=== PATIENT | male | born 1930 | race Caucasian/White ===

== ENCOUNTER 2017-02-02 10:43 | Outpatient (CLI) | payer MEDICARE, MEDICAID ==
[~2017-02-02 10:43] MED LIST: CLOP75TA2 PO; DUTA0.5C PO; OLME40TA3 PO; ROSU10TA PO; TAMS-12 PO; VENL150C2 PO; VENL75TA54 PO
== END 2017-02-02 23:59 | disposition home or self-care (01) ==
LOC: CARD 10:43
DX: L02.416 Cutaneous abscess of left lower limb (principal); M79.89 Other specified soft tissue disorders
CPT/HCPCS: 76882

== ENCOUNTER 2017-10-18 08:18 | Emergency (ER) | payer MEDICARE, OTHER ==
[~2017-10-18] VITALS: Ht 162.6 cm; Wt 79.4 kg
[~2017-10-18 08:18] MED LIST changes: +CLOP75TA15 PO; -CLOP75TA2 PO; +OLME40TA12 PO; -OLME40TA3 PO
--- NOTE | 2017-10-18 08:26 | NUR ---
C/O BLURRY/CLOUDY VISION X 3 DAYS
[2017-10-18] MEDS ORDERED: TETRACAINE HCL/PF 0.5% UD 2 ML BOTTLE EACHEYE ONE (08:30)
[2017-10-18] MEDS ORDERED: TONO PEN in ED SUPPLY ONICELL 1 EA MC ONE (08:30)
[2017-10-18] MEDS ORDERED: FLUORESCEIN SODIUM OPHTH 1 EA STRIP OP ONE (08:30)
[2017-10-18] MEDS ORDERED: FLUORESCEIN SODIUM OPHTH 1 EA STRIP ONE (08:31)
[2017-10-18] MEDS ORDERED: TETRACAINE HCL/PF 0.5% UD 2 ML BOTTLE ONE (08:31)
--- NOTE | 2017-10-18 08:38 | NUR ---
DR MONTILLA AT BEDSIDE FOR EVAL
[2017-10-18 08:53] VITALS: BP 150/78
== END 2017-10-18 08:55 | disposition home or self-care (01) ==
LOC: ER 08:20
DX: H10.89 Other conjunctivitis (principal); I10 Essential (primary) hypertension; Z88.8 Allergy status to other drugs, medicaments and biological substances
CPT/HCPCS: A4606; Z7610

== ENCOUNTER 2021-05-01 19:41 | Inpatient (IN) | payer MEDICARE, OTHER ==
[~2021-05-01] VITALS: Ht 170.2 cm; Wt 90.7 kg
[~2021-05-01 19:41] MED LIST changes: -ROSU10TA PO; +ROSU10TA2 PO
--- NOTE | 2021-05-01 19:45 | NUR ---
YAN FROM [facility] FOR FURHTER EVAL ON ABD PAIN, N/V SINCE THIS MORNING. KUB RESULT: PARTIAL SBO VS ILEUS, PT AAOX2-3, NOT IN ACUTE DISTRESS, PT TO BED 6, PLACED ON MONITOR, VSS ,PENDING ER PROVIDER EVAL
--- NOTE | 2021-05-01 19:58 | NUR ---
LAUREN RUBY AT [facility] PT HAS REC'D TWO DOSES OF MODERNA VACCINE.
[2021-05-01 20:14] LABS: BASOPHILS % (AUTO) 0.2 % (0.0-2.0); HEMATOCRIT 44 % (39-51); HEMOGLOBIN 14.8 g/dL (13.5-17.5); LYMPHOCYTES # (AUTO) 1.8 K/uL (0.8-4.8); LYMPHOCYTES % (AUTO) 13.9 % (20.0-44.0); MEAN CORPUSCULAR HGB CONC 33 g/dl (31.0-36.0); MEAN CORPUSCULAR VOLUME 93 fL (80-96); MONOCYTES # (AUTO) 1.1 K/uL (0.1-1.30); MONOCYTES % (AUTO) 8.5 % (2.0-12.0); NEUTROPHILS % (AUTO) 77.4 % (43.0-81.0); PLATELET COUNT (AUTO) 161 K/uL (150-450); RED BLOOD CELL COUNT(AUTO) 4.76 MIL/uL (4.5-6.0)
[2021-05-01] MEDS ORDERED: IV NS 0.9% 1,000 ML BAG IV ONE (20:30)
[2021-05-01 20:43] LABS: ALBUMIN 3.3 g/dL (3.4-5.0); BILIRUBIN,DIRECT 0.4 mg/dL (0.0-0.2); BILIRUBIN,TOTAL 1.9 mg/dL (0.2-1.0); CALCIUM, SERUM 8.6 mg/dL (8.5-10.1); CREATININE 1.1 mg/dL (0.6-1.3); POTASSIUM 3.6 mmol/L (3.5-5.1); TOTAL PROTEIN, SERUM 7.5 g/dL (6.4-8.2)
--- NOTE | 2021-05-01 22:12 | NUR ---
NARESH COLLECTED AND SENT TO THE LAB.
[2021-05-01] MEDS ORDERED: SIME125C81 PO (22:18)
[2021-05-01] MEDS ORDERED: CITA20TA19 PO (22:18)
[2021-05-01] MEDS ORDERED: CARV12.52 PO (22:18)
[2021-05-01] MEDS ORDERED: PANT40TA2 PO (22:18)
[2021-05-01] MEDS ORDERED: DOCU100C36 PO (22:18)
--- NOTE | 2021-05-01 23:53 | NUR ---
attempted to insert NGT. unable
[2021-05-02] VITALS (7 sets, daily range): BP systolic 143–172; BP diastolic 51–85
[2021-05-02] MEDS ORDERED: MAG HYDROX/AL HYDROX/SIMETH 30 ML UDC PO PRN
[2021-05-02] MEDS ORDERED: ONDANSETRON HCL/PF 4 MG/2 ML VIAL IVP PRN
[2021-05-02] MEDS ORDERED: ZOLPIDEM TARTRATE 5 MG TABLET PO PRN
[2021-05-02] MEDS ORDERED: Z GUARD REMEDY 2 OZ OINT TP PRN
[2021-05-02] MEDS ORDERED: ACETAMINOPHEN 325 MG TABLET PO PRN
--- NOTE | 2021-05-02 01:02 | NUR ---
m/s 114-1
--- NOTE | 2021-05-02 01:59 | NUR ---
HELD JUAQUIN SGail CONSULT IN AM
[2021-05-02] MEDS: ENOXAPARIN SODIUM 40 MG/0.4 ML DISP.SYRIN SQ SCH ×2 (02:00→08:30)
--- NOTE | 2021-05-02 02:00 | NUR ---
REPORT GIVEN TO ROXIE SOTO FOR SHAJI
--- NOTE | 2021-05-02 02:15 | NUR ---
MS RN NOTES ADMITTED A 89 Y/O AWAKE A/OX2-3 RESTING COMFORTABLY IN BED . NPO STATUS . NO S/SX OF ACUTE DISTRESS NO SOB NOTED. PATIENT'S BREATHING IS EVEN AND UNLABORED. WITH ADMITTING DX OF SBO .IVF NS AT 75CC/HR TOLERATES WELL. NOTED IV SITE ON L AC #20 ; PATENT, INTACT AND FLUSHING WELL; NO S/S OF INFECTION OR INFILTRATION. SAFETY MEASURES HAVE BEEN PROVIDED AND IMPLEMENTED. PATIENT BED ALARM IS ON. HEAD OF BED ELEVATED. BED IS LOCKED, IN LOWEST POSITION AND SIDE RAILS UP. CALL LIGHT WITHIN REACH OF THE PATIENT. NGT INSERTED ON RIGHT NARES CONNECTED TO INTERMITTENT SUCTION , WILL CONTINUE TO MONITOR FOR ANY CHANGES .KUB ORDER STAT FOR NGT PLACEMENT AWAITING FOR RESULT .V/S STABLE AFEBRILE.
--- NOTE | 2021-05-02 02:20 | NUR ---
PT TRANSPORTED TO 1ST FLOOR
[2021-05-02] MEDS: IV NS 0.9% 1,000 ML IV PRN ×2 (02:58→20:07)
[2021-05-02 06:58] LABS: BASOPHILS % (AUTO) 0.1 % (0.0-2.0); HEMATOCRIT 42 % (39-51); HEMOGLOBIN 13.9 g/dL (13.5-17.5); LYMPHOCYTES # (AUTO) 1.4 K/uL (0.8-4.8); LYMPHOCYTES % (AUTO) 15.5 % (20.0-44.0); MEAN CORPUSCULAR HGB CONC 34 g/dl (31.0-36.0); MEAN CORPUSCULAR VOLUME 94 fL (80-96); MONOCYTES # (AUTO) 0.9 K/uL (0.1-1.30); MONOCYTES % (AUTO) 9.9 % (2.0-12.0); NEUTROPHILS % (AUTO) 74.5 % (43.0-81.0); PLATELET COUNT (AUTO) 140 K/uL (150-450); RED BLOOD CELL COUNT(AUTO) 4.41 MIL/uL (4.5-6.0); WHITE BLOOD COUNT (AUTO) 9.3 K/uL (4.3-11.0)
[2021-05-02 07:09] LABS: CALCIUM, SERUM 8.4 mg/dL (8.5-10.1); MAGNESIUM 2.4 mg/dL (1.8-2.4); PHOSPHORUS 2.7 mg/dL (2.5-4.9); POTASSIUM 3.6 mmol/L (3.5-5.1)
--- NOTE | 2021-05-02 07:26 | NUR ---
SHOW WORKER NOTES ENDORSE TO RN DAYSHIFT FOR CONTINUITY OF CARE.
[2021-05-02] MEDS: hydrALAZINE HCL IV 20 MG VIAL IV PRN (07:50)
--- NOTE | 2021-05-02 08:04 | NUR ---
MS/RN OPENING NOTES RECEIVED PATIENT IN BED. A/OX2-3 RESTING COMFORTABLY IN BED. HARD OF HEARING. STILL ON NPO STATUS . NO S/SX OF ACUTE DISTRESS NO SOB NOTED. PATIENT'S BREATHING IS EVEN AND UNLABORED. WITH ADMITTING DX OF SBO .IVF NS AT 75CC/HR TOLERATES WELL. NOTED IV SITE ON L AC #20 ; PATENT, INTACT AND FLUSHING WELL; SAFETY PRECAUTIONSIN PLACED. PATIENT BED ALARM IS ON. HEAD OF BED ELEVATED. BED IS LOCKED, IN LOWEST POSITION AND SIDE RAILS UP. CALL LIGHT WITHIN REACH OF THE PATIENT. NGT ON RIGHT NARES CONNECTED TO INTERMITTENT SUCTION , WILL CONTINUE TO MONITOR FOR ANY CHANGES
[2021-05-02] MEDS: PANTOPRAZOLE 40 MG TABLET.DR PO SCH (09:00)
[2021-05-02] MEDS: DOCUSATE SODIUM 100 MG CAPSULE PO SCH (09:00)
[2021-05-02] MEDS: DUTASTERIDE (0.5 MG) 0.5 MG CAPSULE PO SCH (09:00)
[2021-05-02] MEDS: CARVEDILOL 12.5 MG TABLET PO SCH ×2 (09:00→17:00)
[2021-05-02] MEDS: CLOPIDOGREL BISULFATE 75 MG TABLET PO SCH (09:00)
[2021-05-02] MEDS: CITALOPRAM HYDROBROMIDE 20 MG TABLET PO SCH (09:00)
[2021-05-02] MEDS ORDERED: DIATR MEGLU/DIATRIZOATE SODIUM 120 ML BOTTLE (GASTROGRAPHIN) ONE (09:25)
--- NOTE | 2021-05-02 09:30 | NUR ---
MS/RN NOTES RADIOLOGY STAFF PICKED UP PATIENT TO DO XRAY SMALL BOWEL FOLLOW THROUGH. PATIENT IS STABLE ON ROOM AIR. INTERMITTENT SUCTION TURNED OFF AT 9AM. NO DISTRESS NOTED AT THIS TIME. CONSENTS SIGNED BY PATIENT.
[2021-05-02] MEDS ORDERED: LORAZEPAM INJ 2 MG/ML VIAL IV PRN (11:30)
--- NOTE | 2021-05-02 17:03 | NUR ---
MS/AMMONIA PRINT OPERATOR NOTES CALLED IN ENDORSEMENT TO SAMIR COOPER RN. PATIENT IS ALERT AND ORIENTED X3, ABLE TO MAKE NEEDS KNOWN. STABLE ON ROOM AIR. TRANSFERRED TO BED 327-2 VIA [facility].
--- NOTE | 2021-05-02 17:14 | NUR ---
MS STEEL RIGGER NOTES RECEIVED TRANSFER FROM ALETHEA. PATIENT MEDICALLY STABLE, A/O X2. NG TUBE TO R NARIS. SAFETY PRECAUTIONS IN PLACE; BED IN LOW POSITION AND LOCKED, RAILS UP X2, CALL LIGHT WITHIN REACH. WILL CONTINUE TO MONITOR PATIENT.
--- NOTE | 2021-05-02 18:48 | NUR ---
MS RN NOTES PATIENT REMAINS IN BED, AWAKE, A/O X2, CONFUSED. HE IS NPO FOR NOW DUE TO SBO AND POSSIBLE PROCEDURE. NG-TUBE TO THE R NARIS, NOT ON SUCTION DUE TO SBO X-RAY SERIES. SAFETY PRECAUTIONS IN PLACE; BED IN LOW POSITION AND LOCKED, RAILS UP X2, CALL LIGHT WITHIN REACH. WILL ENDORSE TO CABLE FERRY OPERATOR NURSE FOR SHAJI.
--- NOTE | 2021-05-02 19:25 | NUR ---
MS/RN OPENING NOTE RECEIVED PATIENT RESTING IN BED. AWAKE, ALERT AND ORIENTED X 2. ABLE TO MAKE NEEDS KNOWN. DENIES PAIN AT THIS TIME. CONTINUES ON ROOM AIR WITH NO S/SX OF RESPIRATORY DISTRESS NOTED. IV ACCESS TO LEFT AC #20G INTACT AND PATENT. CONTINUES ON IVF NS 0.9% @ 75ML/HR. CONTINUES ON NPO STATUS. NG TUBE TO RIGHT NARE INTACT AND SECURE. CONTINUING TO HOLD SUCTION FOR SMALL BOWEL FOLLOW THROUGH. CALL LIGHT WITHIN REACH. ASPIRATION, FALL AND SAFETY PRECAUTIONS MAINTAINED. WILL CONTINUE TO MONITOR.
--- NOTE | 2021-05-02 20:45 | NUR ---
MS/RN NOTE PATIENT WITH INCREASED AGITATION, C/O POSITIONING OF NG TUBE. REPOSITIONED AND SECURED. ADMINISTERED PRN ATIVAN.
[2021-05-02] MEDS: LORAZEPAM INJ 2 MG/ML VIAL IV PRN (20:46)
[2021-05-02] MEDS: TAMSULOSIN 0.4 MG CAP.SR.24H PO SCH (22:00)
[2021-05-02] MEDS: VENLAFAXINE XR 75 MG CAP.SR.24H PO SCH (22:00)
--- NOTE | 2021-05-02 22:45 | NUR ---
MS/RN NOTE RECEIVED CALL FROM RADIOLOGY WITH SMALL BOWEL FOLLOW THROUGH RESULT. IMPRESSION "CONSISTENT WITH HIGH GRADE SMALL BOWEL OBSTRUCTION". NOTIFIED TISSUE TECHNOLOGIST LALO DEE WITH ORDERS TO RESTART NGT SUCTION ON LOW INTERMITTENT SUCTION. SUCTION APPLIED. PATIENT TOLERATING WELL. Addendum: 05/02/21 at 2352 by DANITA SIMMS RN SMALL BOWEL FOLLOW THROUGH XRAY SHOWS POSITIVE PLACEMENT OF NG TUBE. PRIOR TO PLACING ON SUCTION AUSCULTATED ABDOMEN WITH POSITIVE PLACEMENT NOTED.
[2021-05-03 00:23] VITALS: BP 143/85
[2021-05-03] MEDS: LORAZEPAM INJ 2 MG/ML VIAL IV PRN (02:37)
[2021-05-03] MEDS: IV NS 0.9% 1,000 ML IV PRN (05:56)
--- NOTE | 2021-05-03 06:35 | NUR ---
MS/RN CLOSING NOTE PATIENT CURRENTLY SLEEPING IN BED. AWAKE, ALERT AND ORIENTED X 2. ABLE TO MAKE NEEDS KNOWN. DENIES PAIN AT THIS TIME. CONTINUES ON ROOM AIR WITH NO S/SX OF RESPIRATORY DISTRESS NOTED. IV ACCESS TO LEFT AC #20G INTACT AND PATENT. CONTINUES ON IVF NS 0.9% @ 75ML/HR. CONTINUES ON NPO STATUS. NG TUBE TO RIGHT NARE INTACT AND SECURE. CONTINUES ON LOW INTERMITTENT SUCTION WITH TOTAL OUTPUT OF 1300CC THIS SHIFT. CALL LIGHT WITHIN REACH. ASPIRATION, FALL AND SAFETY PRECAUTIONS MAINTAINED. WILL ENDORSE PLAN OF CARE TO ONCOMING SHIFT.
--- NOTE | 2021-05-03 07:25 | NUR ---
RN OPENING NOTE RECEIVED PATIENT IN BED. A/O X 2-3. ON ROOM AIR, NO SOB NOTED. NO S/S OF RESPIRATORY DISTRESS. DENIES ANY PAIN OR DISCOMFORT AT THIS TIME. IV ACCESS ON R FA #20 G, NS RUNNING AT 75 ML/HR, INTACT AND PATENT. NGT TUBE ON R NARE CONNECTED TO LOW INTERMITTENT SUCTION. CURRENTLY ON NPO STATUS. SAFETY MEASURES MAINTAINED. BED IN LOWEST POSITION, BRAKES LOCKED. SIDE RAILS UP X2. CALL LIGHT WITHIN REACH. WILL CONTINUE PLAN OF CARE.
[2021-05-03 07:33] LABS: BASOPHILS % (AUTO) 0.1 % (0.0-2.0); HEMATOCRIT 44 % (39-51); HEMOGLOBIN 14.7 g/dL (13.5-17.5); LYMPHOCYTES # (AUTO) 1.5 K/uL (0.8-4.8); LYMPHOCYTES % (AUTO) 15.5 % (20.0-44.0); MEAN CORPUSCULAR HGB CONC 33 g/dl (31.0-36.0); MEAN CORPUSCULAR VOLUME 96 fL (80-96); MONOCYTES # (AUTO) 1.4 K/uL (0.1-1.30); MONOCYTES % (AUTO) 14.4 % (2.0-12.0); NEUTROPHILS # (AUTO) 6.6 K/uL (1.8-8.9); PLATELET COUNT (AUTO) 151 K/uL (150-450); RED BLOOD CELL COUNT(AUTO) 4.62 MIL/uL (4.5-6.0); WHITE BLOOD COUNT (AUTO) 9.5 K/uL (4.3-11.0)
[2021-05-03 07:40] LABS: BILIRUBIN,TOTAL 1.9 mg/dL (0.2-1.0); CALCIUM, SERUM 8.3 mg/dL (8.5-10.1); CREATININE 1.2 mg/dL (0.6-1.3); MAGNESIUM 2.6 mg/dL (1.8-2.4); PHOSPHORUS 2.8 mg/dL (2.5-4.9); POTASSIUM 3.6 mmol/L (3.5-5.1); TOTAL PROTEIN, SERUM 7.1 g/dL (6.4-8.2)
[2021-05-03 08:00] VITALS: BP 169/72
[2021-05-03] MEDS: DOCUSATE SODIUM 100 MG CAPSULE PO SCH (08:12)
[2021-05-03] MEDS: CLOPIDOGREL BISULFATE 75 MG TABLET PO SCH (08:12)
[2021-05-03] MEDS: CARVEDILOL 12.5 MG TABLET PO SCH ×2 (08:12→16:08)
[2021-05-03] MEDS: CITALOPRAM HYDROBROMIDE 20 MG TABLET PO SCH (08:12)
[2021-05-03] MEDS: PANTOPRAZOLE 40 MG TABLET.DR PO SCH (08:12)
[2021-05-03] MEDS: DUTASTERIDE (0.5 MG) 0.5 MG CAPSULE PO SCH (08:12)
[2021-05-03] MEDS: ENOXAPARIN SODIUM 40 MG/0.4 ML DISP.SYRIN SQ SCH (08:27)
--- NOTE | 2021-05-03 09:30 | NUR ---
RN NOTE Clamp ngt tube as per Heather Teresa NP.
[2021-05-03] MEDS: IV D5/0.45 NACL 1,000 ML IV PRN (11:05)
[2021-05-03 16:00] VITALS: BP 179/87
--- NOTE | 2021-05-03 18:16 | NUR ---
RN CLOSING NOTE PATIENT RESTING IN BED. A/O X 2-3. ON ROOM AIR, NO SOB NOTED. NO S/S OF RESPIRATORY DISTRESS. NO REPORTS OF PAIN OR DISCOMFORT AT THIS TIME. IV ACCESS ON R FA #20 G, NS RUNNING AT 75 ML/HR, INTACT AND PATENT. NGT TUBE ON R NARE CLAMPED. CURRENTLY ON NPO STATUS. ALL NEEDS HAVE BEEN MET AND ATTENDED. SAFETY MEASURES MAINTAINED. BED IN LOWEST POSITION, BRAKES LOCKED. SIDE RAILS UP X2. KEPT CALL LIGHT WITHIN REACH. WILL ENDORSE CONTINUITY OF CARE TO ONCOMING SHIFT.
[2021-05-03 20:00] VITALS: BP 172/75
[2021-05-03 21:14] VITALS: BP 167/69
[2021-05-03] MEDS: hydrALAZINE HCL IV 20 MG VIAL IV PRN (21:20)
[2021-05-03] MEDS: VENLAFAXINE XR 75 MG CAP.SR.24H PO SCH (22:00)
[2021-05-03] MEDS: TAMSULOSIN 0.4 MG CAP.SR.24H PO SCH (22:00)
[2021-05-03 22:15] VITALS: BP 145/65
--- NOTE | 2021-05-03 22:29 | NUR ---
RN NOTES RECEIVED PATIENT IN BED, ALERT/ORIENTED X3, ROOM AIR, NO COMPLAIN OF ABDOMINAL PAIN, NG TUBE CLAMPED, REINFORCED TAPE TO BRIDGE OF NOSE,, ASSISTED TO TOILET USING FWW, KEPT SAFE, WILL CONTINUE TO MONITOR.
[2021-05-04] VITALS: BP 136/71
[2021-05-04 00:23] VITALS: BP 136/71
[2021-05-04] MEDS: IV D5/0.45 NACL 1,000 ML IV PRN ×2 (00:43→17:28)
[2021-05-04] MEDS: LORAZEPAM INJ 2 MG/ML VIAL IV PRN ×2 (01:20→21:00)
--- NOTE | 2021-05-04 04:13 | NUR ---
RN NOTES PATIENT CALLING OUT, RESTLESS, ABDOMINAL DISTENTION, PUT BACK ON SUCTION AT 100 mmHg, GASTRIC FLUIDS SUCTIONED OUT, BROWNISH LIQUID, OUTPUT DRAINED 1300 ML. KEPT HOB ELEVATED, WILL CONTINUE TO MONITOR.
[2021-05-04 06:48] LABS: HEMATOCRIT 45 % (39-51); HEMOGLOBIN 14.9 g/dL (13.5-17.5); LYMPHOCYTES # (AUTO) 1.4 K/uL (0.8-4.8); LYMPHOCYTES % (AUTO) 17.3 % (20.0-44.0); MEAN CORPUSCULAR HGB CONC 33 g/dl (31.0-36.0); MEAN CORPUSCULAR VOLUME 95 fL (80-96); MONOCYTES # (AUTO) 1.4 K/uL (0.1-1.30); MONOCYTES % (AUTO) 16.5 % (2.0-12.0); NEUTROPHILS # (AUTO) 5.4 K/uL (1.8-8.9); NEUTROPHILS % (AUTO) 66.2 % (43.0-81.0); PLATELET COUNT (AUTO) 176 K/uL (150-450); RED BLOOD CELL COUNT(AUTO) 4.69 MIL/uL (4.5-6.0); WHITE BLOOD COUNT (AUTO) 8.2 K/uL (4.3-11.0)
--- NOTE | 2021-05-04 06:50 | NUR ---
ALERT/ORIENTED X3, ROOM AIR, ABDOMINAL FULLNESS, ABDOMINAL DISTENTION, SMALL BOWEL OBSTRUCTION, PUT BACK ON MEDIUM SUCTION, IF ON LOW SUCTION, GASTRIC FLUIDS NOT BEING SUCTIONED, BLANCHABLE REDNESS TO BUTTOCKS, PHOTO TAKEN, ZGUARD APPLIED, TURNING AND REPOSITIONING, KUB TODAY, NPO, IVF, SUPPORTIVE CARE
--- NOTE | 2021-05-04 07:25 | NUR ---
RN OPENING NOTE RECEIVED PATIENT IN BED. A/O X 2-3. ON ROOM AIR, NO SOB NOTED. NO S/S OF RESPIRATORY DISTRESS. DENIES ANY PAIN OR DISCOMFORT AT THIS TIME. IV ACCESS ON R FA #20 G, NS RUNNING AT 75 ML/HR, INTACT AND PATENT. NGT TUBE ON R NARE CLAMPED. REMAINS ON NPO STATUS. SAFETY MEASURES MAINTAINED. BED IN LOWEST POSITION, BRAKES LOCKED. SIDE RAILS UP X2. CALL LIGHT WITHIN REACH. WILL CONTINUE PLAN OF CARE.
[2021-05-04 07:36] LABS: CALCIUM, SERUM 8.2 mg/dL (8.5-10.1); CREATININE 1.1 mg/dL (0.6-1.3); POTASSIUM 3.1 mmol/L (3.5-5.1)
[2021-05-04 08:30] LABS: EOSINOPHILS % (MANUAL) 1 % (0-4); LYMPHOCYTES % (MANUAL) 14 % (16-48); MONOCYTES % (MANUAL) 25 % (0-11.0); NEUTROPHILS % (MANUAL) 60 (42-76)
[2021-05-04] MEDS: CITALOPRAM HYDROBROMIDE 20 MG TABLET PO SCH (08:42)
[2021-05-04] MEDS: DUTASTERIDE (0.5 MG) 0.5 MG CAPSULE PO SCH (08:42)
[2021-05-04] MEDS: PANTOPRAZOLE 40 MG TABLET.DR PO SCH (08:42)
[2021-05-04] MEDS: CLOPIDOGREL BISULFATE 75 MG TABLET PO SCH (08:42)
[2021-05-04] MEDS: CARVEDILOL 12.5 MG TABLET PO SCH ×2 (08:42→16:05)
[2021-05-04] MEDS: DOCUSATE SODIUM 100 MG CAPSULE PO SCH (08:42)
[2021-05-04] MEDS: ENOXAPARIN SODIUM 40 MG/0.4 ML DISP.SYRIN SQ SCH (08:43)
[2021-05-04] MEDS ORDERED: POTASSIUM CHLORIDE 10 MEQ/50 ML PREMIXED IVPB FOR PERIPHERAL LINE IV ONE (09:30)
[2021-05-04] MEDS: POTASSIUM CL. PREMIX PERIPHER. 50 ML IV SCH ×4 (09:50→13:56)
--- NOTE | 2021-05-04 14:30 | NUR ---
RN NOTE PATIENT SCREAMING AND VERBALIZING HE'S IN SO MUCH PAIN. HE'S SUPPOSED TO BE ON HIS 3/4 BAGS OF POTASSIUM CHLORIDE 10 Meq/50ml. BUT REFUSED TO CONTINUE WITH IT. DR SCHULTZ IS MADE AWARE.
--- NOTE | 2021-05-04 16:40 | NUR ---
MS/RN Plavix [facility] called to verify when patient last received plavix. Per CHARLES Renteria, last administered on May 01 at 0900 75mg.
--- NOTE | 2021-05-04 18:29 | NUR ---
RN CLOSING NOTE PATIENT IN BED. A/O X 2-3. ON ROOM AIR, NO SOB NOTED. NO S/S OF RESPIRATORY DISTRESS. DENIES ANY PAIN OR DISCOMFORT AT THIS TIME. IV ACCESS ON R FA #20 G, NS RUNNING AT 125 ML/HR, INTACT AND PATENT. NGT TUBE ON R NARE CLAMPED. REMAINS ON NPO STATUS. PT IS HAVING A PROCEDURE TOMORROW LAPAROSCOPIC VS OPEN BILATERAL HERNIA REPAIR WITH MESH. ALL CONSENTS SIGNED. ABLE TO MAKE NEEDS KNOWN. SUCTIONED NEEDED. SAFETY MEASURES MAINTAINED. BED IN LOWEST POSITION, BRAKES LOCKED. SIDE RAILS UP X2. CALL LIGHT WITHIN REACH. WILL ENDORSE CONTINUITY OF CARE TO ONCOMING SHIFT.
[2021-05-04 20:00] VITALS: BP 133/65
--- NOTE | 2021-05-04 20:00 | NUR ---
MS RN OPENING NOTES Patient is sleeping through easy to wake. Denies pain at this time. Denies any needs. NGT noted to R nare clamped, no indications for suction at this time. Will continue to monitor.
--- NOTE | 2021-05-04 21:00 | NUR ---
Patient c/o anxiety and accompanying SOB, inability to sleep. Patient given PRN Ativan but refused supplemental O2. HOB elevated to 60 degrees amnd suctioned 40cc from NGT then return to clamp. Patient states he felt relief. VS: BP 152/77, HR 67, O2 96%, RR 21.
[2021-05-04] MEDS: VENLAFAXINE XR 75 MG CAP.SR.24H PO SCH (21:27)
[2021-05-04] MEDS: TAMSULOSIN 0.4 MG CAP.SR.24H PO SCH (21:27)
--- NOTE | 2021-05-04 22:02 | NUR ---
Received call from Dr. Díaz's CELL PREPARER Teetee Manning stating that patient needs to be off of Plavix for 5 days prior to surgery, so surgery planned for AM will be postponed.
--- NOTE | 2021-05-05 | NUR ---
low intermittent suction resumed.
[2021-05-05] MEDS: LORAZEPAM INJ 2 MG/ML VIAL IV PRN (01:04)
[2021-05-05] MEDS: IV D5/0.45 NACL 1,000 ML IV PRN ×3 (01:13→23:54)
--- NOTE | 2021-05-05 03:26 | NUR ---
Mouth suctioned with Yankauer -thick white secretions. Patient felt relief.
[2021-05-05 06:21] LABS: BASOPHILS % (AUTO) 0.1 % (0.0-2.0); EOSINOPHILS % (AUTO) 0.3 % (0.0-6.0); HEMATOCRIT 42 % (39-51); LYMPHOCYTES # (AUTO) 1.3 K/uL (0.8-4.8); LYMPHOCYTES % (AUTO) 15.9 % (20.0-44.0); MEAN CORPUSCULAR HGB CONC 34 g/dl (31.0-36.0); MEAN CORPUSCULAR VOLUME 95 fL (80-96); MONOCYTES # (AUTO) 1.1 K/uL (0.1-1.30); NEUTROPHILS % (AUTO) 70.7 % (43.0-81.0); PLATELET COUNT (AUTO) 159 K/uL (150-450); WHITE BLOOD COUNT (AUTO) 8.5 K/uL (4.3-11.0)
--- NOTE | 2021-05-05 06:38 | NUR ---
MS RN CLOSING NOTES Patient sleeping intermittently throughout night. C/o anxiety x2 with relief from PRN Ativan. Suctioned moujth when needed thick white mucous, NGT R nare on low intermittent suction with brownish output. Patient is currently resting in bed in no distress. Able to use call light and make needs known. Notified patient of postponed procedure.
[2021-05-05 06:56] LABS: CALCIUM, SERUM 7.5 mg/dL (8.5-10.1); CREATININE 0.7 mg/dL (0.6-1.3); MAGNESIUM 2.5 mg/dL (1.8-2.4); PHOSPHORUS 2.2 mg/dL (2.5-4.9); POTASSIUM 3.2 mmol/L (3.5-5.1)
--- NOTE | 2021-05-05 07:23 | NUR ---
RN OPENING NOTE RECEIVED PATIENT IN BED. A/O X 2-3. BREATHING EVENLY AND NONLABORED ON ROOM AIR, NO SOB NOTED. NO S/S OF RESPIRATORY DISTRESS. DENIES ANY PAIN OR DISCOMFORT AT THIS TIME. IV ACCESS ON L FA #20 G, NS RUNNING AT 75 ML/HR, INTACT AND PATENT. NGT TUBE ON R NARE CONNECTED TO LOW INTERMITTENT SUCTION. REMAINS ON NPO STATUS. SAFETY MEASURES MAINTAINED. BED IN LOWEST POSITION, BRAKES LOCKED. SIDE RAILS UP X2. CALL LIGHT WITHIN REACH. WILL CONTINUE TO MONITOR.
[2021-05-05 08:00] VITALS: BP 154/87
[2021-05-05] MEDS ORDERED: K PHOS NEUTRAL 250 MG TABLET PO ONE (08:30)
[2021-05-05] MEDS ORDERED: POTASSIUM CHLORIDE 20 MEQ TAB.PRT.SR PO SCH (08:30)
[2021-05-05] MEDS: PANTOPRAZOLE 40 MG TABLET.DR PO SCH (09:00)
[2021-05-05] MEDS: DOCUSATE SODIUM 100 MG CAPSULE PO SCH (09:00)
[2021-05-05] MEDS: CITALOPRAM HYDROBROMIDE 20 MG TABLET PO SCH (09:00)
[2021-05-05] MEDS: DUTASTERIDE (0.5 MG) 0.5 MG CAPSULE PO SCH (09:00)
[2021-05-05] MEDS: CARVEDILOL 12.5 MG TABLET PO SCH ×2 (09:00→16:10)
[2021-05-05] MEDS ORDERED: POTASSIUM PHOSPHATE MM 15 MMOL in IV NS 0.9% 250 ML IV SCH (09:30)
[2021-05-05] MEDS ORDERED: POTASSIUM CHLORIDE 20 MEQ TAB.PRT.SR PO ONE (10:00)
[2021-05-05] MEDS: POTASSIUM PHOSPHATE MM 7.5 MMOL in IV NS 0.9% 100 ML IV SCH ×2 (10:59→13:51)
--- NOTE | 2021-05-05 13:18 | NUR ---
RN NOTE PATIENT COMPLAINED OF DISCOMFORT AT IV SITE. UPON ASSESSMENT SWELLING NOTED. IV FLUIDS STOPPED, RAISED ARM ICE APPLIED, IV ACCESS REMOVED. MULTIPLE ATTEMPTS FOR REINSERTION UNSUCCESSFUL. MD NOTIFIED WITH NEW ORDER FOR MIDLINE INSERTION. IV ACCESS REINSERTED RIGHT UPPER ARM MIDLINE 18 GUAGE WILL CONTINUE TO MONITOR
[2021-05-05 16:00] VITALS: BP 133/63
--- NOTE | 2021-05-05 18:27 | NUR ---
MS RN CLOSING NOTE PATIENT IN BED. A/O X 2-3. PATIENT IS BREATHING EVENLY AND NONLABORED ON ROOM AIR, NO SOB NOTED. NO S/S OF RESPIRATORY DISTRESS. DENIES ANY PAIN OR DISCOMFORT AT THIS TIME. IV ACCESS ON R FA #20 G, NS RUNNING AT 125 ML/HR, INTACT AND PATENT. NGT TUBE ON R NARE CLAMPED. REMAINS ON NPO STATUS. PT IS HAVING A PROCEDURE TOMORROW LAPAROSCOPIC VS OPEN BILATERAL HERNIA REPAIR WITH MESH. ALL CONSENTS SIGNED. ABLE TO MAKE NEEDS KNOWN. SUCTIONED NEEDED. SAFETY MEASURES MAINTAINED. BED IN LOWEST POSITION, BRAKES LOCKED. SIDE RAILS UP X2. CALL LIGHT WITHIN REACH. WILL ENDORSE TO ONCOMING SHIFT
--- NOTE | 2021-05-05 19:30 | NUR ---
Patient awake, A&Ox3. NGT to low intermittent suction. Kept NPO. no signs of distress. Denies pain or discomfort. IVF going at 125cc/hr. Will continue to monitor.
[2021-05-05] MEDS: VENLAFAXINE XR 75 MG CAP.SR.24H PO SCH (22:00)
[2021-05-05] MEDS: TAMSULOSIN 0.4 MG CAP.SR.24H PO SCH (22:00)
[2021-05-06] VITALS (19 sets, daily range): BP systolic 103–155; BP diastolic 48–79
--- NOTE | 2021-05-06 02:00 | NUR ---
RT came to deep suction patient d/t thick white phlegm, congestion
[2021-05-06 06:44] LABS: EOSINOPHILS % (AUTO) 0.2 % (0.0-6.0); HEMATOCRIT 40 % (39-51); HEMOGLOBIN 13.4 g/dL (13.5-17.5); LYMPHOCYTES # (AUTO) 1.2 K/uL (0.8-4.8); LYMPHOCYTES % (AUTO) 13.4 % (20.0-44.0); MEAN CORPUSCULAR HGB CONC 33 g/dl (31.0-36.0); MEAN CORPUSCULAR VOLUME 95 fL (80-96); MONOCYTES % (AUTO) 11.2 % (2.0-12.0); NEUTROPHILS # (AUTO) 6.8 K/uL (1.8-8.9); NEUTROPHILS % (AUTO) 75.2 % (43.0-81.0); PLATELET COUNT (AUTO) 134 K/uL (150-450); RED BLOOD CELL COUNT(AUTO) 4.23 MIL/uL (4.5-6.0)
--- NOTE | 2021-05-06 07:00 | NUR ---
MS RN CLOSING NOTES Patient A&Ox3. Kept NPO overnight. tolerating IVF well. Suctioned with goran PRN for secretions. Oral care given. VSS.
[2021-05-06 07:09] LABS: CALCIUM, SERUM 7.5 mg/dL (8.5-10.1); PHOSPHORUS 2.3 mg/dL (2.5-4.9); POTASSIUM 3.1 mmol/L (3.5-5.1)
[2021-05-06] MEDS: DOCUSATE SODIUM 100 MG CAPSULE PO SCH (09:00)
[2021-05-06] MEDS: PANTOPRAZOLE 40 MG TABLET.DR PO SCH (09:00)
[2021-05-06] MEDS: CARVEDILOL 12.5 MG TABLET PO SCH ×2 (09:00→17:27)
[2021-05-06] MEDS ORDERED: POTASSIUM PHOSPHATE MM 7.5 MMOL in IV NS 0.9% 100 ML IV SCH ×2 (09:00→17:00)
[2021-05-06] MEDS: DUTASTERIDE (0.5 MG) 0.5 MG CAPSULE PO SCH (09:00)
[2021-05-06] MEDS: CITALOPRAM HYDROBROMIDE 20 MG TABLET PO SCH (09:00)
[2021-05-06] MEDS ORDERED: POTASSIUM PHOSPHATE MM 15 MMOL in IV NS 0.9% 250 ML IV SCH (09:00)
[2021-05-06] MEDS ORDERED: LIDOCAINE 1% INJ 50 ML MDV IJ ONE ×2 (11:52)
[2021-05-06] MEDS ORDERED: FENTANYL PF 100MCG/2ML AMPUL ONE (13:34)
[2021-05-06] MEDS ORDERED: ROCURONIUM BROMIDE 50 MG/5 ML ONE (13:35)
--- NOTE | 2021-05-06 15:47 | NUR ---
RT Pt received orally intubated from OR with a 7.0 ET tube secured at 23cm at the lip line. Equal bilateral breath sounds and chest rise noted. Pt was placed on mechanical ventilation with noted settings per verbal order by Dr. Cotton. Vent is plugged into red [employer], BVM by bedside, and alarms are set and audible. No SOB or respiratory distress noted. Addendum: 05/06/21 at 1553 by CHANDNI SIMON RT Amended: Links added.
[2021-05-06] MEDS ORDERED: MORPHINE SULFATE INJ 2 MG/ML DISP.SYRIN IV PRN (16:00)
[2021-05-06] MEDS ORDERED: PROPOFOL 100 ML IV PRN (16:00)
--- NOTE | 2021-05-06 16:25 | NUR ---
ICU/RN PT IS POST OP EXP LAP.,BOWEL OBSTRUCTION AND HERNIA REPAIR.INTUBATED ON THE VENT,PLACED ON AC MODE.ABG DONE, DR NUNEZ NOTIFIED.DIPRIVAN STARTED.NG TUBE CONNECT TO LOW INTERMEDIATE SUCTION.F/C DRAINING WITH YELLOW URINE.RIGHT UPPER ARM MID LINE .BILATERAL SOFT WRIST RESTRAINS ON.REDNESS ON JEWELS AREA NOTED. SUCTION PROVIDED REPOSITION FOR COMFORT.V/S STABLE ,AFEBRILE.NO PAIN REPORTED AT THIS TIME.
[2021-05-06] MEDS: PROPOFOL 100 ML IV PRN ×2 (16:48→23:02)
--- NOTE | 2021-05-06 16:56 | NUR ---
RT PER MD ORDER PATIENT PLACED ON AC MODE. ALARMS CHECKED + AUDIBLE. KEYLAU BAG AT HOB Addendum: 05/06/21 at 1657 by CARTER CABRERA RT Amended: Links added.
[2021-05-06 17:22] LABS: ABG OXYGEN SATURATION 99.2 % (92.0-98.5); ABG PCO2 36.9 mmHg (35.0-45.0); ABG PO2 197.3 mmHg (75.0-100.0); AaDO2 189.9 mmHg; COHb 0.5 % (0.5-1.5); MetHb 0.1 % (0.0-1.5); O2Hb 98.6 % (94.0-97.0); SITE, ABG Right Radial
[2021-05-06] MEDS: IV D5/0.45 NACL 1,000 ML IV PRN (17:25)
--- NOTE | 2021-05-06 19:20 | NUR ---
RECEIVED PT ON BED SEDATED ON ETT 04/22/VENT SETTING PER MD ORDER FIO2 40% SPO2 97% NO SIGN OF RESPIRATORY DISTRESS NOTED, SINUS RHYTHM ON MONITOR HR 70'S, HAVE ROVERTO ML DIPRIVAN @ 20 MCG/KG/MIN, D5 1/2NS@ 125ML/HR INFUSING WELL, HAVE BILATERAL WRIST RESTRAINS FOR SELF EXTUBATION PRECAUTION, HAVE SAUCEDO CATHETER WITH COCO URINE DRAINING VIA GRAVITY R NGT CONNECTED TO LIS WITH GREENISH LIQUID OUTPUT, BED ON LOWEST POSITION AND LOCKED SIDE RAILS UP WILL CONT TO MONITOR
[2021-05-06] MEDS ORDERED: POTASSIUM PHOSPHATE MM 15 MMOL in IV NS 0.9% 250 ML IV ONE (20:00)
[2021-05-06] MEDS: VENLAFAXINE XR 75 MG CAP.SR.24H PO SCH (21:31)
[2021-05-06] MEDS: TAMSULOSIN 0.4 MG CAP.SR.24H PO SCH (21:31)
[2021-05-07] VITALS (36 sets, daily range): BP systolic 96–146; BP diastolic 49–72
--- NOTE | 2021-05-07 01:30 | NUR ---
PT ON BED STILL SEDATED, ON ETT/VENT SETTING ORDER NO SIGN OF RESPIRATORY DISTRESS, NO PAIN NOTED WILL CONT TO
[2021-05-07] MEDS: IV D5/0.45 NACL 1,000 ML IV PRN ×3 (03:30→23:36)
[2021-05-07 04:46] LABS: BASOPHILS % (AUTO) 0.1 % (0.0-2.0); EOSINOPHILS % (AUTO) 0.2 % (0.0-6.0); HEMATOCRIT 37 % (39-51); HEMOGLOBIN 12.4 g/dL (13.5-17.5); LYMPHOCYTES # (AUTO) 1.4 K/uL (0.8-4.8); MEAN CORPUSCULAR HGB CONC 34 g/dl (31.0-36.0); MEAN CORPUSCULAR VOLUME 95 fL (80-96); MONOCYTES % (AUTO) 10.8 % (2.0-12.0); NEUTROPHILS # (AUTO) 6.8 K/uL (1.8-8.9); NEUTROPHILS % (AUTO) 73.9 % (43.0-81.0); PLATELET COUNT (AUTO) 127 K/uL (150-450); RED BLOOD CELL COUNT(AUTO) 3.89 MIL/uL (4.5-6.0); WHITE BLOOD COUNT (AUTO) 9.2 K/uL (4.3-11.0)
[2021-05-07 05:04] LABS: CALCIUM, SERUM 6.4 mg/dL (8.5-10.1); CREATININE 1.1 mg/dL (0.6-1.3); MAGNESIUM 1.9 mg/dL (1.8-2.4); PHOSPHORUS 2.8 mg/dL (2.5-4.9); POTASSIUM 3.4 mmol/L (3.5-5.1)
[2021-05-07] MEDS: PROPOFOL 100 ML IV PRN (06:01)
--- NOTE | 2021-05-07 06:49 | NUR ---
PT STILL ON BED SEDATED, ON ETT/VENT SETTING ORDER FIO2 40% SPO2 98% NO SIGN OF RESPIRATORY DISTRESS, NO SIGNIFICANT CHANGES ON CONDITION NOTED, ALL NEEDS ATTENDED, BEDSIDE MONITOR READS SINUS RHYTHM 70' HAVE BILATERAL WRIST RESTRAINTS CIRCULATION WAS CHECKED REGULARLY, STILL ON PROPOFOL @ 25 MCG/KG/MIN, AND D5 1/2 NS @ 125ML/HR INFUSING WELL VIA ROVERTO ML, ON SAUCEDO WITH 400ML COCO URINE,FOR BREATHING TRIAL THIS AM PER PULMO PLAN BED ON LOWEST POSITION AND LOCKED SIDERAILS UP X 2 WILL ENDORSED TO AM SHIFT NURSE
--- NOTE | 2021-05-07 07:15 | NUR ---
PRODUCT DEVELOPMENT COORDINATOR NOTES RECEIVED PATIENT SEDATED , RESPONSIVE TO PAIN STIMULI , NOT IN ACUTE DISTRESS , RESPIRATIONS EVEN AND UNLABORED WITH SPO2 OF 100% ETT 04/[address] , SR 85 ON BEDSIDE MONITOR , RIGHT NARE NGT ON LOW INTERMITTENT SUCTION NOTED WITH GREENISH OUTPUT , FC DRAINING VIA GRAVITY , ROVERTO ML WITH DIPRIVAN @ 25,MMCG/KG/MIN , D5 1/2 NS @ 100 ML/HR INFUSING WELL , WILL CONTINUE TO MONITOR ,
[2021-05-07] MEDS ORDERED: DC PROPOFOL WHEN EXTUBATED XX PRN (08:00)
[2021-05-07] MEDS: PANTOPRAZOLE 40 MG TABLET.DR PO SCH (08:02)
[2021-05-07] MEDS: DOCUSATE SODIUM 100 MG CAPSULE PO SCH (08:02)
[2021-05-07] MEDS: CITALOPRAM HYDROBROMIDE 20 MG TABLET PO SCH (08:02)
[2021-05-07] MEDS: CARVEDILOL 12.5 MG TABLET PO SCH ×2 (08:02→15:38)
[2021-05-07] MEDS: DUTASTERIDE (0.5 MG) 0.5 MG CAPSULE PO SCH (08:02)
--- NOTE | 2021-05-07 08:10 | NUR ---
pt. is awake and follow commands placed on simv 4 / ps 15, peep 5, @ 40% fio2 for weaning trial as order. Addendum: 05/07/21 at 0818 by ANURAG MORENO RT Amended: Links added.
--- NOTE | 2021-05-07 08:10 | NUR ---
STIFF STRAW HAT WASHER NOTES PT OFF DIPRIVAN FOR WEANING TRIALS , RT ANURAG PLACED PT ON SIMV MODE , PT AWAKE , ABLE TO FOLLOW SIMPLE COMMANDS , RESTRAINS IN PLACE , NO DISTRESS , SPO2 OF 98% , WILL CONTINUE TO MONITOR.
[2021-05-07 09:04] LABS: ABG BASE EXCESS -0.3 mmol/L; ABG OXYGEN SATURATION 98.9 % (92.0-98.5); ABG PCO2 26.2 mmHg (35.0-45.0); ABG PH 7.523 (7.350-7.450); ABG PO2 147.7 mmHg (75.0-100.0); AaDO2 107.4 mmHg; COHb 0.5 % (0.5-1.5); MetHb 0.1 % (0.0-1.5); O2Hb 98.3 % (94.0-97.0); PEEP,BG 5 cm H2O; SITE, ABG Right Radial; VENT MODE, BG SIMV 4/ PS 15; VT, ABG 450 mL
[2021-05-07] MEDS: POTASSIUM CL. PREMIX PERIPHER. 50 ML IV SCH ×4 (09:04→13:13)
--- NOTE | 2021-05-07 09:15 | NUR ---
DENTAL COORDINATOR NOTES RT ANURAG RELAYED ABG RESULT TO DR NUNEZ ON SIMV MODE, PT IS AOX2-3 ABLE TO FOLLOW COMMANDS , VSS , NO DISTRESS, SPO2 OF 100% , PER MD OK TO EXTUBATE , EXTUBATED PT WITH NO SIGNS OF DISTRESS , TOLERATED WELL , PLACED ON 2LPM NC SPO2 OF 99% , ORAL CARE DONE , REORIENT PATIENT TO DATE PLACE AND TIME ,
--- NOTE | 2021-05-07 09:15 | NUR ---
PT IS AWAKE AND FOLLOW COMMANDS EXTUBATED @ 0915 ORDER. PLACED INTO NASAL CANNULA @ 2 LPM O2 FLOW. SPO2 98 - 100% RR 17 - 20 bpm HR 78 BPM NO INCREASE WORK OF BREATHING NOTED Addendum: 05/07/21 at 09 by ANURAG MORENO RT Amended: Links added.
--- NOTE | 2021-05-07 09:25 | NUR ---
TRIAL MANAGEMENT ASSOCIATE NOTES UPDATED FAMILY S/P EXTUBATION ,
--- NOTE | 2021-05-07 16:58 | NUR ---
CAMPUS POLICE OFFICER NOTES O2 TO RA , SPO2 OF 100% WITH NO DISTRESS , TOLERATING WELL ,WILL CONTINUE TO MONITOR
--- NOTE | 2021-05-07 18:06 | NUR ---
HAND SPRAY OPERATOR NOTES NOTIFIED DR GILBERT REGARDING URINE OUTPUT OF 200ML X 12 HOURS , BLADDER NOTED WITH MINIMAL DISTENTION , ON SAUCEDO CATH , AWARE
--- NOTE | 2021-05-07 18:52 | NUR ---
AIR CONDITIONING MANAGER NOTES PT NOTED WITH 350 ML COCO COLORED URINE AFTER SAUCEDO CATHETER REPOSITIONING , NO ACTIVE BLEEDING NOTED , BLADER SOFT NON DISTENDED , NO CC OF PAIN .
--- NOTE | 2021-05-07 19:16 | NUR ---
RECEIVED PT ON BED AWAKE AA/O X2-3 S/O EXTUBATION ON ROOM AIR TOLERATING WELL SPO2 97% NO SIGN OF RESPIRATORY DISTRESS, TELEMONITOR READS SINUS RHYTHM 70'S HAVE R NGT CONNECTED TO LIS, HAVE ROVERTO ML WITH ONGOING D5 1/2 NS @ 100ML/HR INFUSING WELL PT STILL NPO PER SURGEON UNTIL HE PASSED BOWEL,HAVE SAUCEDO CATHETER WITH COCO YELLOW URINE DRAINING VIA GRAVITY, BED AT LOWEST POSITION AND LOCKED SIDE RAILS UP X2 CALL LIGHT WITHIN REACH WILL CONT TO MONITOR
[2021-05-07] MEDS: VENLAFAXINE XR 75 MG CAP.SR.24H PO SCH (22:00)
[2021-05-07] MEDS: TAMSULOSIN 0.4 MG CAP.SR.24H PO SCH (22:00)
[2021-05-08] VITALS (22 sets, daily range): BP systolic 113–165; BP diastolic 51–80
[2021-05-08 04:43] LABS: ALBUMIN 1.9 g/dL (3.4-5.0); BILIRUBIN,TOTAL 1.2 mg/dL (0.2-1.0); CREATININE 0.9 mg/dL (0.6-1.3); MAGNESIUM 1.9 mg/dL (1.8-2.4); PHOSPHORUS 1.9 mg/dL (2.5-4.9); POTASSIUM 3.3 mmol/L (3.5-5.1); TOTAL PROTEIN, SERUM 5.3 g/dL (6.4-8.2)
[2021-05-08 04:59] LABS: BASOPHILS % (AUTO) 0.1 % (0.0-2.0); HEMATOCRIT 37 % (39-51); HEMOGLOBIN 12.2 g/dL (13.5-17.5); LYMPHOCYTES # (AUTO) 1.8 K/uL (0.8-4.8); LYMPHOCYTES % (AUTO) 15.6 % (20.0-44.0); MEAN CORPUSCULAR HGB CONC 33 g/dl (31.0-36.0); MEAN CORPUSCULAR VOLUME 95 fL (80-96); MONOCYTES # (AUTO) 1.3 K/uL (0.1-1.30); MONOCYTES % (AUTO) 11.7 % (2.0-12.0); NEUTROPHILS # (AUTO) 8.1 K/uL (1.8-8.9); NEUTROPHILS % (AUTO) 71.6 % (43.0-81.0); PLATELET COUNT (AUTO) 126 K/uL (150-450); RED BLOOD CELL COUNT(AUTO) 3.92 MIL/uL (4.5-6.0); WHITE BLOOD COUNT (AUTO) 11.3 K/uL (4.3-11.0)
[2021-05-08] MEDS: LORAZEPAM INJ 2 MG/ML VIAL IV PRN (06:54)
--- NOTE | 2021-05-08 07:10 | NUR ---
MECHANICAL SOUND TECHNICIAN NOTES RECEIVED PATIENT AOX 3 , NO DISTRESS , DENIES SOB AND DISCOMFORT , SPO2 OF 98% VIA RA , SR 70 ON BEDSIDE MONITOR , RIGHT NGT ON LOW INTERMITTENT SUCTION DRAINING WITH MINIMAL BROWN OUTPUT , FC DRAINING VIA GRAVITY , ROVERTO ML WITH D5 1/2 NS @ 100 ML /HR INFUSING WELL , ALL NEEDS ATTENDED , WILL CONTINUE TO MONITOR .
--- NOTE | 2021-05-08 07:10 | NUR ---
PT ON BED SLEEPING ON ROOM AIR SPO2 93% NO SIGN OF RESPIRATORY DISTRESS, NO PAIN COMPLAINT, TELEMONITOR READ SINUS RHYTHM 70'S NO SIGNIFICANT CHNAGES ON CONDITION NOTED ALL NEEDS ATTENDED, BED ON LOWEST POSITION AND LOCKED SIDE RAILS UP X2 CALL LIGHT WITHIN REACH ENDORSE TO AM SHIFT NURSE
[2021-05-08] MEDS ORDERED: Sodium Phosphate 30 MMOL in IV NS 0.9% 250 ML IV SCH (07:30)
[2021-05-08] MEDS: IV D5/0.45 NACL 1,000 ML IV PRN ×2 (07:46→17:29)
--- NOTE | 2021-05-08 07:56 | NUR ---
STAGE TECHNICIAN NOTES URINE COLLECTED LABELED AND SENT TO LAB .
[2021-05-08] MEDS: POTASSIUM CL. PREMIX PERIPHER. 50 ML IV SCH ×2 (08:02→09:04)
[2021-05-08] MEDS: DUTASTERIDE (0.5 MG) 0.5 MG CAPSULE PO SCH (08:07)
[2021-05-08] MEDS: CARVEDILOL 12.5 MG TABLET PO SCH ×2 (08:08→16:05)
[2021-05-08] MEDS: PANTOPRAZOLE 40 MG TABLET.DR PO SCH (08:08)
[2021-05-08] MEDS: CITALOPRAM HYDROBROMIDE 20 MG TABLET PO SCH (08:08)
[2021-05-08] MEDS: DOCUSATE SODIUM 100 MG CAPSULE PO SCH (08:08)
[2021-05-08] MEDS ORDERED: PANTOPRAZOLE 40 MG VIAL IV SCH (08:30)
[2021-05-08] MEDS: ENOXAPARIN SODIUM 40 MG/0.4 ML DISP.SYRIN SQ SCH (08:47)
[2021-05-08 08:51] LABS: BILIRUBIN,URINE NEGATIVE (NEGATIVE); COLOR,URINE YELLOW (YELLOW); LEUKOCYTE ESTERASE ,URINE NEGATIVE (NEGATIVE); NITRITE, URINE NEGATIVE (NEGATIVE); PH,URINE 6.5 (5.0-8.0); PROTEIN,URINE 30 mg/dl (NEGATIVE); UGLUCOSE NEGATIVE (NEGATIVE); UROBILINOGEN,URINE >=8.0 EU/dL (0.2)
[2021-05-08 09:42] LABS: BACTERIA,URINE Few /HPF (None Seen); RBC,URINE 51-80 /HPF (0-2); SQUAMOUS EPITHELIAL CELL,UR Rare /HPF (None Seen); WBC,URINE 0-3 /HPF (0-3)
--- NOTE | 2021-05-08 10:18 | NUR ---
SCIENTIST IMMUNOLOGY NOTES REPORT GIVEN TO SHEREE FOR CONTINUITY OF CARE . ALL QUESTIONS ANSWERED
--- NOTE | 2021-05-08 10:30 | NUR ---
MS RN NOTE RECEIVED PATIENT FROM ICU. PATIENT STABLE. STABLE ON ROOM AIR - NO SOB NOTED. NO DISTRESS/DISCOMFORT NOTED. NO PAIN NOTED AT THIS TIME. RIGHT NGT HOOKED UP TO LOW INTERMITTENT SUCTION ORDERED, SAUCEDO CATHETER IN PLACE, DRAINING TO GRAVITY. IV ACCESS TO RIGHT UA MIDLINE - RUNNING D5 1/2 NS @ 100 ML/HR. SAFETY MEASURES IN PLACE. CALL LIGHT WITHIN REACH. WILL CONTINUE TO MONITOR.
--- NOTE | 2021-05-08 10:47 | NUR ---
EXECUTIVE OFFICER NOTES TRANSFERED PT TO ROOM 326-1 , PT STABLE , BP 121/53 HR SR 71 RR 18 SPO2 OF 98% VIA RA , R NGT CLAMPED AT THIS TIME WHILE WAITING FOR A SUCTION SET UP , REMINDED RN TO PLACE TO LOW INTERMITTENT SUCTION ORDERED , FC IN PLACE , ROVERTO ML WITH D5 1/2 NS @ 100ML /HR WITN ONGOING NA PHOS @ 43.333/HR INFUSING WELL , BELONGING LIST CHECKED , UPDATED DAUGHTER REGARDING THE TRANSFER .
--- NOTE | 2021-05-08 18:26 | NUR ---
MS RN CLOSING NOTE PATIENT CURRENTLY LYING IN BED, WATCHING TV. A/O X2-3. STABLE ON ROOM AIR - NO SOB NOTED. NO DISTRESS/DISCOMFORT NOTED. NO PAIN NOTED AT THIS TIME. RIGHT NGT CLAMPED. STARTED ON CLEAR LIQUID DIET TOLERATED. SAUCEDO CATHETER IN PLACE, DRAINING TO GRAVITY. IV ACCESS TO RIGHT UA MIDLINE - RUNNING D5 1/2 NS @ 100 ML/HR. SAFETY MEASURES IN PLACE. CALL LIGHT WITHIN REACH. WILL ENDORSE TO PROFESSOR OF MARKETING NURSE FOR SHAJI.
--- NOTE | 2021-05-08 19:15 | NUR ---
MS RN OPENING NOTES: RECEIVED PATIENT IN BED, AWAKE, A/O X3. NO S/S OF DISTRESS NOTED. CALL LIGHT WITHIN REACH. BED IN LOWEST AND LOCKED POSITION. BED ALARM ON. HOB ELEVATED. WITH RIGHT NARE NGT INTACT, CLAMPED.ICE CHIPS AT BEDSIDE, REMINDED PT TO TAKE ICE CHIPS WITH SMALL AMOUNT AT A TIME ONLY,PATIENT VERBALIZED UNDERSTANDING. WITH SAUCEDO CATHETER INTACT, NO BLEEDING NOTED.WITH SCD'S ON.
[2021-05-08] MEDS: TAMSULOSIN 0.4 MG CAP.SR.24H PO SCH ×2 (21:06→21:36)
[2021-05-08] MEDS: VENLAFAXINE XR 75 MG CAP.SR.24H PO SCH ×2 (21:07→21:36)
--- NOTE | 2021-05-08 21:33 | NUR ---
NO COMPLAINED OF NAUSEA OR VOMITTING. NGT REMOVED.
[2021-05-09] MEDS: IV D5/0.45 NACL 1,000 ML IV PRN (05:11)
--- NOTE | 2021-05-09 06:10 | NUR ---
MS RN CLOSING NOTES: PATIENT IN BED, ASLEEP, EASILY AROUSABLE. NO S/S OF DISTRESS NOTED. CALL LIGHT WITHIN REACH. BED ALARM ON. BED IN LOWEST AND LOCKED POSITION. HOB ELEVATED AT ALL TIMES. NGT REMOVED LAST NIGHT,PO MEDS WITH JELLO GIVEN, PATIENT TOLERATED, NO COMPLAIN OF NAUSEA AND VOMITTING.
[2021-05-09 07:28] LABS: BASOPHILS % (AUTO) 0.1 % (0.0-2.0); EOSINOPHILS % (AUTO) 1.8 % (0.0-6.0); HEMATOCRIT 36 % (39-51); HEMOGLOBIN 12.2 g/dL (13.5-17.5); LYMPHOCYTES % (AUTO) 13.8 % (20.0-44.0); MEAN CORPUSCULAR HGB CONC 34 g/dl (31.0-36.0); MEAN CORPUSCULAR VOLUME 93 fL (80-96); MONOCYTES # (AUTO) 0.5 K/uL (0.1-1.30); MONOCYTES % (AUTO) 7.2 % (2.0-12.0); NEUTROPHILS # (AUTO) 5.9 K/uL (1.8-8.9); NEUTROPHILS % (AUTO) 77.1 % (43.0-81.0); PLATELET COUNT (AUTO) 128 K/uL (150-450); RED BLOOD CELL COUNT(AUTO) 3.88 MIL/uL (4.5-6.0); WHITE BLOOD COUNT (AUTO) 7.6 K/uL (4.3-11.0)
--- NOTE | 2021-05-09 07:30 | NUR ---
MS RN OPENING NOTES RECEIVED PATIENT ON BED, AWAKE, A/O X3. ON ROOM AIR WITH NO SOB NOTED. NOT IN DISTRESS. WITH PATENT IV ACCESS AT RIGHT UA MIDLINE WITH IVF D5 1/2 NS AT 100MLS/HR. WITH SAUCEDO CATHETER INTACT, NO BLEEDING NOTED. ABLE TO MAKE NEEDS KNOWN. CALL LIGHT WITHIN REACH. BED IN LOWEST AND LOCKED POSITION. BED ALARM ON. WILL CONTINUE TO MONITOR.
[2021-05-09 08:00] VITALS: BP 127/56
[2021-05-09 08:08] LABS: CALCIUM, SERUM 7.2 mg/dL (8.5-10.1); CREATININE 0.7 mg/dL (0.6-1.3); PHOSPHORUS 2.1 mg/dL (2.5-4.9); POTASSIUM 3.4 mmol/L (3.5-5.1)
[2021-05-09] MEDS: DOCUSATE SODIUM 100 MG CAPSULE PO SCH (08:38)
[2021-05-09] MEDS: CITALOPRAM HYDROBROMIDE 20 MG TABLET PO SCH (08:38)
[2021-05-09] MEDS: DUTASTERIDE (0.5 MG) 0.5 MG CAPSULE PO SCH (08:38)
[2021-05-09] MEDS: ENOXAPARIN SODIUM 40 MG/0.4 ML DISP.SYRIN SQ SCH (08:38)
[2021-05-09] MEDS ORDERED: CARVEDILOL 6.25 MG TABLET ONE (08:40)
[2021-05-09] MEDS: CARVEDILOL 12.5 MG TABLET PO SCH ×2 (08:42→17:00)
[2021-05-09 10:00] VITALS: BP 127/56
[2021-05-09] MEDS ORDERED: POTASSIUM CHLORIDE 20 MEQ TAB.PRT.SR PO ONE (10:00)
[2021-05-09] MEDS ORDERED: K PHOS NEUTRAL 250 MG TABLET PO ONE (15:30)
[2021-05-09 16:00] VITALS: BP 117/65
--- NOTE | 2021-05-09 18:37 | NUR ---
MS RN CLOSING NOTE PATIENT CURRENTLY LYING ON BED, A/O X3. STABLE ON ROOM AIR - NO SOB NOTED. NO DISTRESS/DISCOMFORT NOTED. WITH NO PAIN NOTED AT THIS TIME. ON CLEAR LIQUID DIET TOLERATED. SAUCEDO CATHETER IN PLACE, DRAINING TO GRAVITY. IV ACCESS TO RIGHT UA MIDLINE - RUNNING D5 1/2 NS @ 100 ML/HR. SAFETY MEASURES IN PLACE. CALL LIGHT WITHIN REACH. WILL ENDORSE TO MANAGER WORK NURSE FOR SHAJI.
--- NOTE | 2021-05-09 19:20 | NUR ---
MS RN OPENING NOTES: RECEIVED PATIENT IN BED, AWAKE, A/O X3, EATING JELLO. NO S/S OF DISTRESS NOTED. CALL LIGHT WITHIN REACH. BED ALARM ON. BED IN LOWEST AND LOCKED POSITION. HOB ELEVATED.
[2021-05-09 20:00] VITALS: BP 130/67
[2021-05-09] MEDS: TAMSULOSIN 0.4 MG CAP.SR.24H PO SCH (22:09)
[2021-05-09] MEDS: VENLAFAXINE XR 75 MG CAP.SR.24H PO SCH (22:09)
[2021-05-10 06:52] LABS: BASOPHILS % (AUTO) 0.1 % (0.0-2.0); EOSINOPHILS % (AUTO) 1.6 % (0.0-6.0); HEMATOCRIT 36 % (39-51); HEMOGLOBIN 12.2 g/dL (13.5-17.5); LYMPHOCYTES # (AUTO) 1.3 K/uL (0.8-4.8); LYMPHOCYTES % (AUTO) 17.6 % (20.0-44.0); MEAN CORPUSCULAR HGB CONC 34 g/dl (31.0-36.0); MEAN CORPUSCULAR VOLUME 94 fL (80-96); MONOCYTES # (AUTO) 0.5 K/uL (0.1-1.30); MONOCYTES % (AUTO) 7.1 % (2.0-12.0); NEUTROPHILS # (AUTO) 5.5 K/uL (1.8-8.9); NEUTROPHILS % (AUTO) 73.6 % (43.0-81.0); PLATELET COUNT (AUTO) 156 K/uL (150-450); RED BLOOD CELL COUNT(AUTO) 3.84 MIL/uL (4.5-6.0); WHITE BLOOD COUNT (AUTO) 7.5 K/uL (4.3-11.0)
--- NOTE | 2021-05-10 06:53 | NUR ---
MS RN CLOSING NOTES: PATIENT IS RESTING IN BED, A/OX 3. NO S/S OF DISTRESS NOTED. CALL LIGHT WITHIN REACH. AMBULATORY WITH STANDBY ASSIST OF FUR WEIGHER. NO COMPLAIN OF PAIN. WITH SAUCEDO CATHETER INTACT. HEELS OFFLOADED. PATIENT ABLE TO TURN AND CHANGE POSITIONS BY HIMSELF. PATIENT RESTED THROUGHOUT THE NIGHT.
[2021-05-10 07:13] LABS: CALCIUM, SERUM 7.6 mg/dL (8.5-10.1); CREATININE 0.7 mg/dL (0.6-1.3); MAGNESIUM 2.2 mg/dL (1.8-2.4); PHOSPHORUS 2.4 mg/dL (2.5-4.9); POTASSIUM 3.5 mmol/L (3.5-5.1)
[2021-05-10 08:00] VITALS: BP 158/76
[2021-05-10] MEDS: CARVEDILOL 12.5 MG TABLET PO SCH ×2 (08:04→16:38)
[2021-05-10] MEDS: CITALOPRAM HYDROBROMIDE 20 MG TABLET PO SCH (08:04)
[2021-05-10] MEDS: DOCUSATE SODIUM 100 MG CAPSULE PO SCH (08:04)
[2021-05-10] MEDS: DUTASTERIDE (0.5 MG) 0.5 MG CAPSULE PO SCH (08:04)
[2021-05-10] MEDS: PANTOPRAZOLE 40 MG TABLET.DR PO SCH (08:04)
[2021-05-10] MEDS: ENOXAPARIN SODIUM 40 MG/0.4 ML DISP.SYRIN SQ SCH (08:05)
[2021-05-10 10:00] VITALS: BP 156/70
[2021-05-10] MEDS ORDERED: K PHOS NEUTRAL 250 MG TABLET PO ONE (15:00)
[2021-05-10 16:00] VITALS: BP 108/46
--- NOTE | 2021-05-10 19:30 | NUR ---
MS RN Opening Notes Patient was seen awake in bed resting. Patient's alert and oriented x3. Patient's on room air with no respiratory distress noted. Patient has a ROVERTO midline which is intact, patent, and flushing well. Patient's in no acute distress at this time. Safety measures in place: Bed locked, Bed alarm on, side rails up x3, and call light within reach of the patient. Will continue to monitor the patient.
[2021-05-10 20:00] VITALS: BP 122/62
[2021-05-10] MEDS: TAMSULOSIN 0.4 MG CAP.SR.24H PO SCH (21:06)
[2021-05-10] MEDS: VENLAFAXINE XR 75 MG CAP.SR.24H PO SCH (21:07)
[2021-05-10 22:00] VITALS: BP 149/80
[2021-05-10] MEDS ORDERED: LORAZEPAM INJ 2 MG/ML VIAL IV PRN (23:00)
--- NOTE | 2021-05-11 06:44 | NUR ---
MS RN Closing Notes Patient was last seen sleeping in bed. Patient's alert and oriented x3. Patient's on room air with no respiratory distress noted. Patient has a ROVERTO midline which is intact, patent, and flushing well. Patient's in no acute distress at this time. Safety measures in place: Bed locked, Bed alarm on, side rails up x3, and call light within reach of the patient. Will endorse care to the day shift nurse.
[2021-05-11] MEDS: PANTOPRAZOLE 40 MG TABLET.DR PO SCH (07:55)
[2021-05-11 08:00] VITALS: BP 109/57
--- NOTE | 2021-05-11 08:06 | NUR ---
MS/RN OPENING NOTES RECEIVED PATIENT IN BED, ALERT AND ORIENTEDX3, ABLE TO MAKE NEEDS KNOWN. ON ROOM AIR, NO SOB NOTED. RIGHT UPPER ARM MIDLINE IS INTACT AND PATENT ON SALINE LOCK. SAFETY MEASURES IN PLACED, BED LOCKED ON LOWEST POSITION, SIDE RAILS UPX2, CALL LIGHT WITHIN EASY REACH. WILL CONTINUE TO MONITOR PATIENT.
[2021-05-11] MEDS: ENOXAPARIN SODIUM 40 MG/0.4 ML DISP.SYRIN SQ SCH (08:56)
[2021-05-11] MEDS: CITALOPRAM HYDROBROMIDE 20 MG TABLET PO SCH (08:57)
[2021-05-11] MEDS: DOCUSATE SODIUM 100 MG CAPSULE PO SCH (08:57)
[2021-05-11] MEDS: DUTASTERIDE (0.5 MG) 0.5 MG CAPSULE PO SCH (08:57)
[2021-05-11] MEDS: CARVEDILOL 12.5 MG TABLET PO SCH ×2 (08:58→17:00)
[2021-05-11 09:56] LABS: HEMATOCRIT 36 % (39-51); HEMOGLOBIN 11.9 g/dL (13.5-17.5); MEAN CORPUSCULAR HGB CONC 33 g/dl (31.0-36.0); MEAN CORPUSCULAR VOLUME 93 fL (80-96); PLATELET COUNT (AUTO) 191 K/uL (150-450); RED BLOOD CELL COUNT(AUTO) 3.83 MIL/uL (4.5-6.0)
[2021-05-11 10:30] LABS: CALCIUM, SERUM 7.7 mg/dL (8.5-10.1); CREATININE 1.1 mg/dL (0.6-1.3); POTASSIUM 3.7 mmol/L (3.5-5.1)
[2021-05-11] MEDS ORDERED: CEFTRIAXONE 1 G in IV D5W 50 ML IV SCH (11:00)
[2021-05-11 11:10] VITALS: BP 109/56
[2021-05-11 13:17] LABS: EOSINOPHILS % (MANUAL) 1 % (0-4); LYMPHOCYTES % (MANUAL) 2 % (16-48); MONOCYTES % (MANUAL) 3 % (0-11.0); NEUTROPHILS % (MANUAL) 94 (42-76)
--- NOTE | 2021-05-11 14:03 | NUR ---
MS/RN NOTES BLADDER SCAN DONE AND GOT 149ML READING. MD NOTIFIED.
[2021-05-11 14:55] LABS: BASOPHILS % (AUTO) 0.2 % (0.0-2.0); EOSINOPHILS % (AUTO) 0.7 % (0.0-6.0); HEMATOCRIT 33 % (39-51); HEMOGLOBIN 10.9 g/dL (13.5-17.5); LYMPHOCYTES # (AUTO) 1.1 K/uL (0.8-4.8); LYMPHOCYTES % (AUTO) 7.7 % (20.0-44.0); MEAN CORPUSCULAR HGB CONC 33 g/dl (31.0-36.0); MEAN CORPUSCULAR VOLUME 94 fL (80-96); MONOCYTES # (AUTO) 0.5 K/uL (0.1-1.30); MONOCYTES % (AUTO) 3.6 % (2.0-12.0); NEUTROPHILS # (AUTO) 12.5 K/uL (1.8-8.9); NEUTROPHILS % (AUTO) 87.8 % (43.0-81.0); PLATELET COUNT (AUTO) 173 K/uL (150-450); RED BLOOD CELL COUNT(AUTO) 3.51 MIL/uL (4.5-6.0); WHITE BLOOD COUNT (AUTO) 14.3 K/uL (4.3-11.0)
[2021-05-11 15:33] LABS: BAND % (MANUAL) 5 % (0.0-5.0); LYMPHOCYTES % (MANUAL) 5 % (16-48); MONOCYTES % (MANUAL) 2 % (0-11.0); NEUTROPHILS % (MANUAL) 88 (42-76)
[2021-05-11 16:00] VITALS: BP 102/44
--- NOTE | 2021-05-11 17:27 | NUR ---
MS/RN NOTES- WITHHOLD CARVEDILOL WITHHOLD CARVEDILOL 25MG PO DUE TO LOW BP OF 104/50. WILL CONT. TO MONITOR.
--- NOTE | 2021-05-11 17:58 | NUR ---
PATIENT REFUSED CT SCANS. RN NOTIFIED.
[2021-05-11] MEDS: PIPERACILLIN /TAZOBACTAM 3.375 G in IV D5W 50 ML IV SCH ×2 (18:13→23:59)
--- NOTE | 2021-05-11 19:22 | NUR ---
MS/RN CLOSING NOTES PATIENT IN BED, ALERT AND ORIENTEDX3, ABLE TO MAKE NEEDS KNOWN. ON ROOM AIR, NO SOB NOTED. RIGHT UPPER ARM MIDLINE IS INTACT AND PATENT ON SALINE LOCK. ALL NEEDS MET TODAY. SAFETY MEASURES IN PLACED, BED LOCKED ON LOWEST POSITION, SIDE RAILS UPX2, CALL LIGHT WITHIN EASY REACH. WILL ENDORSE TO THE NEXT SHIFT FOR SHAJI.
--- NOTE | 2021-05-11 19:54 | NUR ---
MS RN OPENING NOTES PATIENT RESTING IN BED, ALERT/ORIENTED X 3, PT ABLE TO MAKE NEEDS KNOWN. PT DENIES PAIN AT THIS TIME. NO S/S OF DISTRESS OR SOB NOTED, BREATHING EVEN AND UNLABORED, PT STABLE ON RA. RIGHT UPPER ARM MIDLINE INTACT AND FLUSHING WELL, SALINE LOCKED. PT STATES SHE HAS NO NEEDS AT THIS TIME. SAFETY MEASURES IN PLACE: CALL LIGHT WITHIN REACH, BED LOCKED IN LOWEST POSITION, BED ALARM ON. WILL CONTINUE TO MONITOR THROUGHOUT SHIFT.
[2021-05-11 20:00] VITALS: BP 116/79
[2021-05-11] MEDS: TAMSULOSIN 0.4 MG CAP.SR.24H PO SCH (21:11)
[2021-05-11] MEDS: VENLAFAXINE XR 75 MG CAP.SR.24H PO SCH (21:11)
[2021-05-12] MEDS: PIPERACILLIN /TAZOBACTAM 3.375 G in IV D5W 50 ML IV SCH ×2 (05:10→11:05)
[2021-05-12 06:34] LABS: BASOPHILS % (AUTO) 0.3 % (0.0-2.0); HEMATOCRIT 34 % (39-51); HEMOGLOBIN 11.5 g/dL (13.5-17.5); LYMPHOCYTES # (AUTO) 0.9 K/uL (0.8-4.8); LYMPHOCYTES % (AUTO) 8.7 % (20.0-44.0); MEAN CORPUSCULAR HGB CONC 34 g/dl (31.0-36.0); MEAN CORPUSCULAR VOLUME 93 fL (80-96); MONOCYTES # (AUTO) 0.5 K/uL (0.1-1.30); MONOCYTES % (AUTO) 4.9 % (2.0-12.0); NEUTROPHILS # (AUTO) 8.3 K/uL (1.8-8.9); NEUTROPHILS % (AUTO) 85.1 % (43.0-81.0); PLATELET COUNT (AUTO) 172 K/uL (150-450); RED BLOOD CELL COUNT(AUTO) 3.61 MIL/uL (4.5-6.0); WHITE BLOOD COUNT (AUTO) 9.8 K/uL (4.3-11.0)
--- NOTE | 2021-05-12 07:00 | NUR ---
MS RN CLOSING NOTES PATIENT RESTING IN BED, PT ABLE TO MAKE NEEDS KNOWN. NO S/S OF DISTRESS OR SOB NOTED, BREATHING EVEN AND UNLABORED, PT STABLE ON RA. RIGHT UPPER ARM MIDLINE INTACT AND FLUSHING WELL, SALINE LOCKED. MEDICATIONS GIVEN ORDERED. PATIENT NEEDS MET THROUGHOUT SHIFT. URINE FOR URINALYSIS COLLECTED. SAFETY MEASURES IN PLACE: CALL LIGHT WITHIN REACH, BED LOCKED IN LOWEST POSITION, BED ALARM ON. WILL ENDORSE TO DAY SHIFT NURSE FOR CONTINUITY OF CARE.
[2021-05-12 07:06] LABS: CALCIUM, SERUM 7.7 mg/dL (8.5-10.1); PHOSPHORUS 2.6 mg/dL (2.5-4.9); POTASSIUM 3.5 mmol/L (3.5-5.1)
[2021-05-12 07:24] LABS: BILIRUBIN,URINE NEGATIVE (NEGATIVE); COLOR,URINE YELLOW (YELLOW); LEUKOCYTE ESTERASE ,URINE NEGATIVE (NEGATIVE); NITRITE, URINE NEGATIVE (NEGATIVE); PH,URINE 7.5 (5.0-8.0); PROTEIN,URINE NEGATIVE (NEGATIVE); UGLUCOSE NEGATIVE (NEGATIVE)
[2021-05-12 07:30] LABS: BACTERIA,URINE Few /HPF (None Seen); RBC,URINE 21-50 /HPF (0-2); SQUAMOUS EPITHELIAL CELL,UR None Seen /HPF (None Seen)
--- NOTE | 2021-05-12 08:00 | NUR ---
MS RN OPENING NOTES RECEIVED PATIENT RESTING IN BED, EASY TO AROUSE, A/O X3. STABLE ON ROOM AIR - NO SOB NOTED. NO DISTRESS/DISCOMFORT NOTED. IV ACCESS TO RIGHT UPPER ARM - MIDLINE - INTACT AND PATENT. NO SAUCEDO NOTED. SAFETY MEASURES IN PLACE. CALL LIGHT WITHIN REACH. WILL CONTINUE TO MONITOR.
[2021-05-12] MEDS: DOCUSATE SODIUM 100 MG CAPSULE PO SCH (08:30)
[2021-05-12] MEDS: CITALOPRAM HYDROBROMIDE 20 MG TABLET PO SCH (08:31)
[2021-05-12] MEDS: PANTOPRAZOLE 40 MG TABLET.DR PO SCH (08:31)
[2021-05-12] MEDS: DUTASTERIDE (0.5 MG) 0.5 MG CAPSULE PO SCH (08:31)
[2021-05-12 08:32] VITALS: BP 132/69
[2021-05-12] MEDS: CARVEDILOL 12.5 MG TABLET PO SCH (08:32)
[2021-05-12] MEDS: ENOXAPARIN SODIUM 40 MG/0.4 ML DISP.SYRIN SQ SCH (08:35)
--- NOTE | 2021-05-12 09:09 | NUR ---
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 PT PREVIOUSLY REFUSED TO TURN FOR SKIN ASSESSMENT. RECOMMENDATIONS MADE FOR SKIN PROTECTION AND WOUND CARE. DISCUSSED WITH NURSING STAFF. IN AGREEMENT WITH PLAN OF CARE. Addendum: 05/12/21 at 0911 by GRACIE ALTAMIRANO WND[facility] Amended: Links added.
[2021-05-12] MEDS ORDERED: HYDROGEL DRESSING 90 GM TUBE TP SCH (09:30)
[2021-05-12] MEDS ORDERED: HYDROGEL DRESSING 90 GM TUBE TP PRN (09:30)
[2021-05-12] MEDS ORDERED: PANT40TA2 PO (12:47)
[2021-05-12] MEDS ORDERED: Hydrogel Dressing TP (12:47)
[2021-05-12] MEDS ORDERED: LEVO750T46 PO (12:47)
[2021-05-12] MEDS ORDERED: ENOX40DI SQ (12:47)
[2021-05-12] MEDS ORDERED: HYDR-3972 PO (12:47)
[2021-05-12] MEDS ORDERED: CARV12.52 PO (12:47)
[2021-05-12] MEDS ORDERED: METR500T PO (12:47)
--- NOTE | 2021-05-12 16:35 | NUR ---
INVENTORY CLERK NOTE PATIENT DISCHARGED VIA AMBULANCE. STABLE, A/O X2-3. STABLE ON ROOM AIR -NO SOB NOTED. NO DISTRESS/DISCOMFORT NOTED. NO PAIN NOTED. IV MIDLINE REMOVED, PRESSURE DRESSING APPLIED. ALL EXITCARE AND PATIENT EDUCATION EXPLAINED TO PATIENT'S DAUGHTER. ALL PAPERWORK IN FOLDER GIVEN TO EMT'S. ALL PT BELONGINGS GIVEN TO EMT. WRISTBAND REMOVED. PATIENT ACCOMPANIED TO LOBBY VIA GURNEY BY EMT'S. DAUGHTER NOTIFIED OF DISCHARGE. MD AND CHARGE NURSE AWARE.
== END 2021-05-12 16:36 | DRG 335 ==
LOC: ER 19:43 → TRANSITION 05-02 00:17 → TELE 05-02 01:16 → TELE1 05-02 01:53 → MEDSG1 05-02 02:37 → MED 05-02 16:59 → ICU 05-06 15:38 → MED 05-08 10:37
PROVIDERS: ADMIT Nurse Practitioner Acute Care; ATTEND Registered Nurse
PROC: 05HB33Z Insertion of Infusion Device into Right Basilic Vein, Percutaneous Approach (ICD-10-PCS; 2021-05-05)
PROC: 0DNU4ZZ Release Omentum, Percutaneous Endoscopic Approach (ICD-10-PCS; principal; 2021-05-06)
PROC: 0DNF4ZZ Release Right Large Intestine, Percutaneous Endoscopic Approach (ICD-10-PCS; principal; 2021-05-06)
PROC: 0YUA4JZ Supplement Bilateral Inguinal Region with Synthetic Substitute, Percutaneous Endoscopic Approach (ICD-10-PCS; principal; 2021-05-06)
PROC: 0TNB4ZZ Release Bladder, Percutaneous Endoscopic Approach (ICD-10-PCS; principal; 2021-05-06)
DX: K40.00 Bilateral inguinal hernia, with obstruction, without gangrene, not specified as recurrent (principal); J69.0 Pneumonitis due to inhalation of food and vomit; J96.00 Acute respiratory failure, unspecified whether with hypoxia or hypercapnia; E44.1 Mild protein-calorie malnutrition; T79.7XXA Traumatic subcutaneous emphysema, initial encounter; N17.9 Acute kidney failure, unspecified; I25.10 Atherosclerotic heart disease of native coronary artery without angina pectoris; E78.5 Hyperlipidemia, unspecified; I10 Essential (primary) hypertension; E86.1 Hypovolemia; N40.0 Benign prostatic hyperplasia without lower urinary tract symptoms; D64.9 Anemia, unspecified; D69.6 Thrombocytopenia, unspecified; E11.65 Type 2 diabetes mellitus with hyperglycemia; E86.0 Dehydration; E87.6 Hypokalemia; Y83.9 Surgical procedure, unspecified as the cause of abnormal reaction of the patient, or of later complication, without mention of misadventure at the time of the procedure; Y92.230 Patient room in hospital as the place of occurrence of the external cause; I70.0 Atherosclerosis of aorta; K40.30 Unilateral inguinal hernia, with obstruction, without gangrene, not specified as recurrent; R13.10 Dysphagia, unspecified; Z87.891 Personal history of nicotine dependence; Z88.8 Allergy status to other drugs, medicaments and biological substances; I71.4 Abdominal aortic aneurysm, without rupture
CPT/HCPCS: 31720; 36410; 36415; 36600; 71045-TC; 74018; 74250-TC; 80048-TC; 80053-TC; 80061-TC; 80076-TC; 81001; 82803-TC; 83605-TC; 83690-TC; 83735-TC; 84100-TC; 84478-TC; 85025-TC; 85730-TC; 86850-TC; 87081-TC; 87086-TC; 92526; 92611-TC; 93307-TC; 94002-TC; 94003-TC; 94760-TC; 94799-TC; 97112-TC; 97116-TC; 97530-TC; 99082-TC; A6248; A9563; C1874; C9113; C9803; G0378; J0360; J0690; J0696; J1650; J2060; J2405; J2543; J2704; J3010; J3480; J3490; J7030; J7050; J7060; Q9963